=== PATIENT | female | born 1930 | race Caucasian/White ===

== ENCOUNTER 2017-08-21 14:59 | Observation (INO) | payer OTHER ==
[~2017-08-21] VITALS: Ht 157.5 cm; Wt 63.2 kg
[~2017-08-21 14:59] MED LIST: ASPIRIN325 MG PO; C COMPLEX500 MG PO; CAL-GEST500 MG PO; GLUCOSAMINE CH PO; KRILL OIL 1,001 EACH PO; PRINIVIL5 MG PO; VYTORIN 10/21 TABLET PO
[2017-08-21 15:53] LABS: BASOPHIL (%) 0.3 % (0-1); EOSINOPHIL (%) 1.6 % (0-5); EOSINOPHIL COUNT 0.2 K/uL (0-0.3); HEMATOCRIT 38.4 % (36.0-46.0); HEMOGLOBIN 12.7 G/DL (11.9-15.5); IMMATURE GRANULOCYTE (%) 0.5 % (0.0-0.7); LYMPHOCYTE (%) 10.4 % (15-42); LYMPHOCYTE COUNT 1.4 K/uL (1.0-2.8); MCH 30.7 PG (29.0-34.0); MCHC 33.1 G/DL (30.0-36.0); MCV 92.8 FL (83-99); MONOCYTE COUNT 0.8 K/uL (0-0.8); NEUTROPHIL (%) 81.2 % (45-76); NEUTROPHIL COUNT 10.6 K/uL (1.8-6.4); PLATELET COUNT 230 K/uL (156-360); RBC DIS.WIDTH-SD 47.4 % (39-53); RED BLOOD COUNT 4.14 M/uL (3.80-5.20)
[2017-08-21 16:03] LABS: CHLORIDE 106 mEq/L (99-109); POTASSIUM 4.8 mEq/L (3.7-5.4); SODIUM 139 mEq/L (136-147)
[2017-08-21 16:05] LABS: GLUCOSE 131 mg/dL (70-99)
[2017-08-21 16:09] LABS: CREATININE 2.2 mg/dL (0.6-1.3); GFR ESTIMATE (CALCULATED) 22 mL/min/
[2017-08-21 16:10] LABS: UREA NITROGEN (BUN) 57 mg/dL (9-23)
[2017-08-21 16:15] LABS: TROP-I INTERPRETATION NEGATIVE; TROPONIN-I < 0.01 ng/mL (0.0-0.30)
[2017-08-21 17:32] LABS: APPEARANCE CLOUDY ((CLEAR)); BILIRUBIN NEGATIVE; BLOOD NEGATIVE; COLOR YELLOW ((YELLOW)); GLUCOSE (STRIP) NEGATIVE; KETONES NEGATIVE; LEUKOCYTES LARGE; NITRITE NEGATIVE; PROTEIN (STRIP) 30; SPECIFIC GRAVITY 1.011 (1.000-1.030); UROBILINOGEN 0.2 MG/DL (0.2-1.0)
[2017-08-21 17:53] LABS: BACTERIA RARE /HPF; EPITHELIAL CELLS RARE /HPF; MUCUS NONE SEEN /LPF; RED BLOOD CELLS 0-5 /HPF (0-5); UCUL ADDED? YES; WHITE BLOOD CELLS TNTC /HPF (0-5)
[2017-08-21 21:23] LABS: HDL CHOLESTEROL 36 MG/DL (Desirable>=50); LDL CHOLESTEROL 60 mg/dL (Desirable<100); NON-HDL CHOLESTEROL 106 mg/dL (Desirable<160); TOTAL CHOLESTEROL 142 mg/dL (Desirable<200); TRIGLYCERIDES 230 MG/DL (Normal: <150)
[2017-08-21] MEDS ORDERED: CALCIUM 600 +1 EAC2 PO (22:23)
[2017-08-21] MEDS ORDERED: ZOCOR20 MG PO (22:25)
[2017-08-21] MEDS ORDERED: TYLENOL REGULA325 MG PO (22:26)
[2017-08-21] MEDS ORDERED: NYSTOP60 GM TP (22:28)
[2017-08-21] MEDS ORDERED: HYDROPHOR OINT454 GM TP (22:29)
[2017-08-21 23:13] VITALS: BP 137/60
[2017-08-22 01:09] LABS: TROP-I INTERPRETATION NEGATIVE; TROPONIN-I < 0.01 ng/mL (0.0-0.30)
[2017-08-22 03:58] VITALS: BP 108/56
[2017-08-22 05:56] LABS: HEMATOCRIT 35.4 % (36.0-46.0); HEMOGLOBIN 11.5 G/DL (11.9-15.5); MCH 30.1 PG (29.0-34.0); MCHC 32.5 G/DL (30.0-36.0); MCV 92.7 FL (83-99); PLATELET COUNT 214 K/uL (156-360); RBC DIS.WIDTH-CV 14.2 % (11.8-14.6); RBC DIS.WIDTH-SD 47.9 % (39-53); RED BLOOD COUNT 3.82 M/uL (3.80-5.20)
[2017-08-22 06:14] LABS: TROP-I INTERPRETATION NEGATIVE; TROPONIN-I < 0.01 ng/mL (0.0-0.30)
[2017-08-22 06:20] LABS: ALBUMIN 3.4 G/DL (3.2-4.8); CHLORIDE 109 MEQ/L (99-109); GFR ESTIMATE (CALCULATED) 25 mL/min/; PHOSPHORUS 2.7 mg/dL (2.5-4.9); POTASSIUM 4.5 MEQ/L (3.7-5.4); SODIUM 139 MEQ/L (136-147); UREA NITROGEN (BUN) 51 mg/dL (9-23)
[2017-08-22 06:22] LABS: GLUCOSE 90 mg/dL (70-99)
[2017-08-22 08:26] VITALS: BP 116/62
[2017-08-22 09:46] LABS: HEMOGLOBIN A1c (GLYCOHEMOGLOB) 5.6 % (Below 5.7)
[2017-08-22 12:34] VITALS: BP 142/66
[2017-08-22 15:41] VITALS: BP 136/87
[2017-08-22 16:06] VITALS: BP 134/67
== END 2017-08-22 16:14 | disposition home or self-care (01) ==
LOC: EME 14:59 → 5SOUTH 19:43 → EDOF 19:43 → ENRESERV 19:47 → 5SOUTH 22:37
PROVIDERS: Emergency Medicine; Hospitalist
PROC: 09QKXZZ Repair Nasal Mucosa and Soft Tissue, External Approach (ICD-10-PCS; principal; 2017-08-21)
DX: N17.9 Acute kidney failure, unspecified (principal); N39.0 Urinary tract infection, site not specified; S02.2XXA Fracture of nasal bones, initial encounter for closed fracture; S01.21XA Laceration without foreign body of nose, initial encounter; W01.0XXA Fall on same level from slipping, tripping and stumbling without subsequent striking against object, initial encounter; Z66 Do not resuscitate; I12.9 Hypertensive chronic kidney disease with stage 1 through stage 4 chronic kidney disease, or unspecified chronic kidney disease; N18.3 Chronic kidney disease, stage 3 (moderate); I69.351 Hemiplegia and hemiparesis following cerebral infarction affecting right dominant side; Z87.891 Personal history of nicotine dependence; Z82.49 Family history of ischemic heart disease and other diseases of the circulatory system; Z82.3 Family history of stroke; Z88.2 Allergy status to sulfonamides
CPT/HCPCS: 70450; 70486; 70490; 70551; 76770; 80048; 80061; 80069; 81003; 82570; 83036; 83930; 83935; 84156; 84300; 84484; 85025; 85027; 87086; 93005; 99281; 99285; G0378; G8978 GP CK; G8979 CJ; G8980 GP CK; J0696; J1644; J7030